=== PATIENT | male | born 1950 | race Caucasian/White ===

== ENCOUNTER 2018-09-28 20:47 | Emergency (ER) | payer OTHER, SELFPAY ==
[2018-09-28 20:48] VITALS: BP 165/89; PULSE 76; RESP 20; TEMP 36.2; O2SAT 96
--- NOTE | 2018-09-28 21:02 | PC.NURSE ---
left third finger dislocated. Pt denies pain if he doesn't move it or hit it on anything. Pt was holding a bottle tree that has knobs all over it. He tripped and fell forward and states his finger was caught up in the knobs and twisted when he fell on it. Denies LOC, thinners, lightheaded dizzyness. stated he hit his head on the bottle tree and scratched it. Medics on orcas put a bandaid on the scratch.
--- NOTE | 2018-09-28 21:07 | ED_ITS ---
HPI - Extremity Injury (Upper) General Chief Complaint: Extremity Injury, Upper Stated Complaint: dislocated finger Time Seen by Provider: 09/28/18 21:06 Source: patient Mode of arrival: ambulatory Limitations: no limitations History of Present Illness HPI narrative: Patient is here for a left middle finger dislocation. He states that he caught it on a object prior to arrival or was dislocated. Has not tried to reduce it prior to arrival. Related Data Home Medications Medication Instructions Recorded Confirmed ASPIRIN (Aspirin EC) 81 mg PO Q DAY #0 10/04/10 atorvastatin 80 mg PO HS #0 tab 02/11/16 multivitamin [Multiple Vitamins] 1 tab PO QDAY #0 tab 02/11/16 Previous Rx's Medication Instructions Recorded sildenafil [Viagra] 0 PO SEE INSTRUCTIONS #6 tab 03/03/16 lisinopril 10 mg PO QDAY #60 tab 01/20/17 Allergies Allergy/AdvReac Type Severity Reaction Status Date / Time No Known Drug Allergies Allergy Verified 09/28/18 20:52 Review of Systems Musculoskeletal Denies tingling Comments: Dislocation left middle finger Integumentary/Breasts Denies rash Neurologic Denies tingling Hematologic/Lymphatic Denies easy bleeding and Denies easy bruising [facility] Medical History Patient denies medical problems (Acute) Social History Smoking Status: Never smoker Social History Smoking Status: Never smoker Exam Initial Vital Signs Initial Vital Signs: Vital Signs Temperature 97.1 F L 09/28/18 20:48 Pulse Rate 76 09/28/18 20:48 Respiratory Rate 20 09/28/18 20:48 Blood Pressure 165/89 H 09/28/18 20:48 Pulse Oximetry 96 09/28/18 20:48 Cardio Pulses: radial pulses present on the left Skin Lesions: no lesions Rashes: no rashes Neuro Sensory Exam: no sensory deficits noted Extrem Other: Patient with a lateral angulation of the PIP joint of the left middle finger. Procedures Orthopedic Joint Reduction Joint #1: Time Out Performed: Yes Side: left Joint Reduction Location: other (Finger) Analgesia: other (Finger block) Local Anesthesia: lidocaine 1% Amount of anesthesic used (mL): 6 Technique used: direct manipulation Post-reduction neuro exam: intact and no change Post-reduction vascular: intact and no change Post Reduction X-Ray Obtained: Yes Post Reduction X-Ray Results: reduced Splint Applied: Yes Patient Tolerated Procedure: Well and No complications Orthopedic Splinting/Casting Injury #1: Side: left Upper Extremity Injury Location: finger Upper Extremity Immobilizer: aluminum form splint Post splinting neuro exam: no change Post splinting vascular exam: no change Placed by: Nursing Course Orders Ordered: ED Orders 09/28/18 21:06 XR hand LT min 3V Stat 09/28/18 21:22 XR hand LT min 3V Stat Vital Signs - 8 hr 09/28/18 20:48 09/28/18 22:05 Temperature 97.1 F L Pulse Rate 76 74 Respiratory Rate 20 16 Blood Pressure 165/89 H 152/88 H Pulse Oximetry 96 99 MDM - Extremity Injury (Upper) Imaging Data Hand x-ray: Radiologist's impression: [address] [address] XRay Report Signed Patient: Patrice Ríos [facility]#: [id number] : 9Acct:[id number] Age/Sex: 68 / MDate of Service: 09/28/18 Loc: ED Accession Number: [id number] Procedure: XR hand LT min 3V Ordering Provider: Baron Diallo D.O. PROCEDURE: XR HAND LT MIN 3V INDICATIONS: dislocated finger TECHNIQUE: 3 views of the hand(s) acquired. COMPARISON: None. FINDINGS: Bones: The third middle phalange is dislocated medially and dorsally.. No fracture identified. Carpal bones are normally aligned. No suspicious bony lesions. Soft tissues: No suspicious soft tissue calcifications. Surgical clips noted in the ventral wrist soft tissues. IMPRESSION: Medial-dorsal left third PIP joint dislocation. Dictated by: Codie Gardner MD, PhD on 09/28/2018 at 21:30 Approved by: Codie Gardner MD, PhD on 09/28/2018 at 21:32 Post reduction hand x-ray: Radiologist's impression: [address] [address] XRay Report Signed Patient: Patrice Ríos [facility]#: [id number] : 9Acct:[id number] Age/Sex: 68 / MDate of Service: 09/28/18 Loc: ED Accession Number: [id number] Procedure: XR hand LT min 3V Ordering Provider: Baron Diallo D.O. PROCEDURE: XR HAND LT MIN 3V INDICATIONS: post reduction TECHNIQUE: 3 views of the hand(s) acquired. COMPARISON: [facility], CR, XR HAND LT MIN 3V, 09/28/2018, 21:11. FINDINGS: Bones: No fractures or dislocations. The third PIP joint dislocation has been reduced. Carpal bones are normally aligned. No suspicious bony lesions. Soft tissues: No suspicious soft tissue calcifications. IMPRESSION: 1. Status post reduction of third PIP joint dislocation. 2. No fracture. Dictated by: Codie Gardner MD, PhD on 09/28/2018 at 22:10 Approved by: Codie Gardner MD, PhD on 09/28/2018 at 22:11 MDM Narrative Medical decision making narrative: Neurovascularly intact, finger reduced as described above. Finger splint placed. Patient was given return precautions and follow-up instructions. He expressed understanding and agreement with plan. Discharge Plan Departure Patient Disposition: Home Clinical Impression: Dislocation of finger, interphalangeal joint, left, closed Qualifiers: Encounter type: initial encounter Qualified Code(s): S63.279A - Dislocation of unspecified interphalangeal joint of unspecified finger, initial encounter Discharge Date/Time: 09/28/18 22:06 Interventions: ED Discharge Assessment Last Done: 09/28/18 22:05 Instructions: DI for Finger Dislocation Activity Restrictions/Additional Instructions: Keep the splint on for the next 2-3 days. Contact your primary care doctor for a follow-up. You can take Tylenol and/or ibuprofen for any discomfort. Return to the emergency department for any new or worsening symptoms Prescriptions: No Action ASPIRIN (Aspirin EC) 81 mg PO Q DAY Qty: 0 RF: 0 multivitamin [Multiple Vitamins] 1 EACH tablet 1 tab PO QDAY Qty: 0 RF: 0 atorvastatin 80 MG tablet 80 mg PO HS Qty: 0 RF: 0 sildenafil [Viagra] 100 MG tablet PO SEE INSTRUCTIONS Qty: 6 RF: 1 lisinopril 10 MG tablet 10 mg PO QDAY Qty: 60 RF: 0 Referrals: Marshall Melo MD [Primary Care Provider] -
--- NOTE | 2018-09-28 21:22 | DI.RAD.S_ITS ---
PROCEDURE: XR HAND LT MIN 3V INDICATIONS: post reduction TECHNIQUE: 3 views of the hand(s) acquired. COMPARISON: [facility], CR, XR HAND LT MIN 3V, 09/28/2018, 21:11. FINDINGS: Bones: No fractures or dislocations. The third PIP joint dislocation has been reduced. Carpal bones are normally aligned. No suspicious bony lesions. Soft tissues: No suspicious soft tissue calcifications. IMPRESSION: 1. Status post reduction of third PIP joint dislocation. 2. No fracture. Dictated by: Codie Gardner MD, PhD on 09/28/2018 at 22:10 Approved by: Codie Gardner MD, PhD on 09/28/2018 at 22:11
[2018-09-28 22:05] VITALS: BP 152/88; PULSE 74; RESP 16; O2SAT 99
== END 2018-09-28 22:06 | disposition home or self-care (01) ==
PROVIDERS: Emergency Provider Emergency Medicine; Family Provider Family Medicine; PCP Family Medicine
DX: S63.273A Dislocation of unspecified interphalangeal joint of left middle finger, initial encounter (principal); W19.XXXA Unspecified fall, initial encounter
CPT/HCPCS: 26770; 29130; 73130; 99282; 99283

== ENCOUNTER → 2021-02-08 09:09 | Outpatient (CLI) | payer MEDICARE, SELFPAY ==
--- NOTE | 2021-02-08 | DI.ECHO.S_ITS ---
[facility]---------+ [facility] +---------+ : : [address] : : : : [id number] : : : : Phone: [phone]+ Echocardiogram Report + + :Name: SILVIA ZELAYA Study Date: 02/08/2021 Height: 69 in : :[facility] ReadingLocation: Weight: 200 lb : : Gender: Male BSA: 2.1 m2 : :: 1950 Age: 70 yrs BP: 163/93 mmHg: :Reason For Study: ATHEROSCLEROSIS OF CORONARY ARTERY : :Ordering Physician: : :ANIKA HATCH Performed By: Teresa Catalan : :Referring: ANIKA LONDONO : + + Interpretation Summary Normal left ventricle size with ejection fraction 55-60%. Mild mitral regurgitation. The ascending aorta is mildly enlarged. Procedure: A two-dimensional transthoracic echocardiogram with color flow and Doppler was performed. The study quality was technically adequate. There is no prior echocardiogram noted for this patient. The patient was in sinus rhythm with heart rates between 60-70 bpm during the exam. Left Ventricle: The left ventricle is normal in size and wall thickness. The ejection fraction is estimated to be 55-60%. There are no focal wall motion abnormalities. Right Ventricle: The right ventricle is not well visualized. The right ventricle is normal size. Atria: The left atrial size is normal. Right atrial size is normal. There is no Doppler evidence for an interatrial shunt. Mitral Valve: The mitral valve leaflets appear mildly thickened, but open well. There is mild mitral regurgitation. Aortic Valve: The aortic valve is trileaflet. The aortic valve opens well. There is no aortic valve stenosis. No aortic regurgitation is present. Tricuspid Valve: The tricuspid valve is not well visualized, but is grossly normal. There is trace tricuspid regurgitation. Pulmonary artery pressures cannot be estimated because of the lack of a measurable TR jet velocity. Pulmonic Valve: The pulmonic valve leaflets are thin and pliable; valve motion is normal. There is mild pulmonic regurgitation. Great Vessels: The aortic root is normal size. The ascending aorta is mildly enlarged. The IVC is of normal diameter and collapses greater than 50% with a sniff. This suggests a low right atrial pressure of 3 mm Hg. Pericardium/ Pleura There is no pericardial effusion. There is no pleural effusion. MMode/2D Measurements & Calculations LVIDd: 5.1 cm LVOT diam: 2.1 cm LVIDs: 3.5 cm Ao root diam: 3.1 cm FS: 31.4 % asc Aorta Diam: 3.9 cm IVSd: 0.82 cm Ao Arch Diam (Prox Trans): 3.2 cm LVPWd: 0.84 cm LV soriano. diameter/BSA (cm/m^2): 2.5 LV sys. diameter/BSA (cm/m^2): 1.7 LA A2 area: 17.5 cm2 RA long axis: 5.2 cm LA A4 area: 16.0 cm2 RA area: 17.1 cm2 LA length (vol): 5.1 cm RA vol: 47.3 ml LA vol: 46.6 ml RA : 22.9 ml/m2 LA vol index: 22.6 ml/m2 IVC diam: 1.2 cm RVD1 (basal): 3.4 cm TAPSE: 1.3 cm Doppler Measurements & Calculations Ao V2 max: 117.5 cm/sec LVOT Max Jovan: 67.9 cm/sec Ao V2 mean: 84.5 cm/sec LV V1 max P.8 mmHg Ao max P.5 mmHg LV V1 VTI: 15.0 cm Ao mean P.2 mmHg JAMAAL(I,D): 2.0 cm2 Ao V2 VTI: 25.7 cm JAMAAL(V,D): 2.0 cm2 sev ratio: 0.58 JAMAAL indexed to BSA (cm^2/m^2): 0.99 MV E max jovan: 74.9 cm/sec PA V2 max: 102.5 cm/sec MV A max jovan: 71.2 cm/sec PA V2 mean: 70.1 cm/sec MV E/A: 1.1 PA mean P.2 mmHg Med Peak E' Jovan: 5.9 cm/sec E/E' med: 12.7 Lat Peak E' Jovan: 7.8 cm/sec E/E' lat: 9.6 E/e' average: 11.1 MV dec time: 0.24 sec SV(LVOT): 52.4 ml Electronically signed by: Anika Dahl on Reading Physician:02/08/2021 05:10 PM
--- NOTE | 2021-02-08 | DI.NM.S_ITS ---
PROCEDURE: NM ROSIE PERF SPECT REST & STR Rest and exercise myocardial perfusion SPECT with gated imaging and ejection fraction RADIOPHARMACEUTICAL: 12.5 mCi Tc-99m sestamibi IV at rest and 25 mCi Tc-99m sestamibi IV at peak exercise. A [id number] was performed. INDICATIONS: Atherosclerosis of coronary artery bypass graft(s) TECHNIQUE: Radiopharmaceutical was injected at peak stress test, and also at rest. SPECT images were obtained. SPECT myocardial perfusion images were displayed in short axis, horizontal long axis, and vertical long axis views. Gated images were reviewed using Betterment software. COMPARISON: None. CARDIAC STRESS: A standard Ki treadmill exercise tolerance test was performed by the patient under the supervision of an attending staff. The patient exercised for 4 minutes and 4 seconds; functional aerobic impairment (SUSANNE) is +32%; 7.0 METS. Hemodynamic data: There is normal blood pressure and heart rate response to exercise stress. Patient achieved 103% of maximum predicted heart rate at peak exercise. Symptoms: Patient denied chest pain during exercise. EKG: No diagnostic EKG changes of ischemia; no ectopy. FINDINGS: Raw data: There is good myocardial labeling by radiotracer. No significant motion artifacts. Exwq-[id number] ratio is 0.29 (normal is less than 0.38 for sestamibi tracer, and less than 0.50 for thallium tracer). Left ventricle function: Gated images demonstrate normal left ventricle wall thickening. No segmental wall motion abnormality. No transient ischemic dilation; TID is 0.96 (normal less than 1.3). The left ventricle resting end-diastolic volume is 91 mL. Left ventricle stress ejection fraction is 65%; normal values are above 45%. Myocardial perfusion: Small size, mild intensity fixed inferoapical defect that resolves with prone imaging. Normal wall motion. IMPRESSION: 1. No evidence of exercise-induced ischemia on ECG or perfusion imaging. 2. Limited exercise capacity. 3. Normal blood pressure response to exercise. Dictated by: Argelia Ortiz D.O. on 02/08/2021 at 16:55 Approved by: Argelia Ortiz M.D. on 02/08/2021 at 17:01
== END ==
PROVIDERS: Family Provider Family Medicine; PCP Family Medicine; Referring Provider Internal Medicine Interventional Cardiology; Visit Provider Internal Medicine Interventional Cardiology
DX: I34.0 Nonrheumatic mitral (valve) insufficiency (principal); I37.1 Nonrheumatic pulmonary valve insufficiency; I77.89 Other specified disorders of arteries and arterioles; I25.810 Atherosclerosis of coronary artery bypass graft(s) without angina pectoris; Z95.1 Presence of aortocoronary bypass graft
CPT/HCPCS: 78452; 93017; 93306; A9502

== ENCOUNTER → 2022-01-31 10:09 | Outpatient (CLI) | payer MEDICARE, SELFPAY ==
[2022-01-31 13:14] LABS: COVID19 -Nasal RAPID Negative (Negative)
== END ==
PROVIDERS: Family Provider Family Medicine; PCP Family Medicine; Visit Provider Surgery
DX: Z01.812 Encounter for preprocedural laboratory examination (principal); Z20.822 Contact with and (suspected) exposure to COVID-19
CPT/HCPCS: 87635; C9803

== ENCOUNTER 2022-02-01 09:06 | Day surgery (SDC) | payer MEDICARE, SELFPAY ==
[2022-02-01] VITALS (7 sets, daily range): BP systolic 110–127; BP diastolic 73–78; PULSE 57–65; RESP 8–16; TEMP 35.9–36.6; O2SAT 94–98; BMI 28.0
[2022-02-01] MEDS: LACTATED RINGERS 1,000 ML 200 ML IV (09:42)
--- NOTE | 2022-02-01 10:39 | PM.HP.1 ---
History of Present Illness History of Present Illness Date Patient Seen: 02/01/22 Time Patient Seen: 10:39 Chief complaint: SCREENING COLONOSCOPY Narrative: The patient presents for colorectal screening. He had previous colonoscopy 6 years ago demonstrated benign polyps. Family history significant for father who had colon cancer. On further history denies any recent gastrointestinal symptoms. No nausea, vomiting, abdominal pain, loss of appetite, unexplained weight loss, change in bowel habits, diarrhea, constipation, melena, hematochezia, or bright red blood per rectum. Patient History Medical History Patient denies medical problems Family & Social History Social History: household members family Tobacco & Substance use: Smoking Status Never smoker alcohol intake current alcohol intake frequency a few times a week Substance Use Type does not use Meds Home Medications and Allergies Home Medications Medication Instructions Recorded Confirmed Type ASPIRIN (Aspirin EC) 81 mg PO Q DAY ##0 10/04/10 02/01/22 History atorvastatin 80 mg tablet 80 mg PO DAILY #0 tabs 02/11/16 02/01/22 History multivitamin (Multiple Vitamins 1 tab PO QDAY #0 tabs 02/11/16 02/01/22 History tablet) lisinopril 10 mg tablet 10 mg PO QDAY #60 tabs 01/20/17 02/01/22 Rx sodium,potassium,mag sulfates 17.5 See Rx Instructions PO .COMPLEX 01/14/22 Rx gram-3.13 gram-1.6 gram oral soln #354 mL (Suprep Bowel Prep Kit) sildenafil 100 mg tablet (Viagra) See Rx Instructions .Route .COMPLEX 02/01/22 02/01/22 History Allergies Allergy/AdvReac Type Severity Reaction Status Date / Time No Known Drug Allergies Allergy Verified 02/01/22 09:30 Exam Vital Signs (past 8 hours): - 02/01/22 09:32 Temperature 96.6 F L Pulse Rate 65 Respiratory Rate 16 Blood Pressure 127/78 Pulse Oximetry 98 Oxygen Delivery Method Room Air Oxygen Flow Rate 0 Oxygen Delivery Method Room Air Oxygen Flow Rate 0 Narrative Exam Narrative: General adult male alert oriented no acute distress Chest nonlabored respiration Abdomen soft nontender nondistended Assessment & Plan Assessment & Plan narrative: The patient requires colorectal screening and colonoscopy is recommended. Technical details were discussed. Risks, benefits, alternatives explained. Risks including but not limited to myocardial infarction, aspiration, bleeding, pain, missed lesion, incomplete examination, need for further radiographic studies, colonic perforation, and need for major abdominal surgery were discussed. All questions were answered to their satisfaction, and they are in agreement with this plan. Time Spent With Patient Critical Care time: I spent a total of [] minutes of critical care time on this patient's care today; this time is exclusive of procedural time.
--- NOTE | 2022-02-01 10:40 | PM.OP.COLON ---
Operative Date/Time/Diagnoses Date of procedure: 02/01/22 Time of procedure: 10:40 Pre-op diagnosis: Personal history of colonic polyps. Family history of colon cancer. Post-op diagnosis: same Procedure & Clinicians Study performed: Colonoscopy Same procedure as scheduled: Yes Indications: Personal history colonic polyps. History of colon cancer in first-degree relative Surgeon: Jose F Richardson Procedure Notes Procedure in detail: Medications: Conscious sedation using 5mg IV midazolam and 100mcg IV of fentanyl The history and physical was performed/updated and the patient is ASA class is 2. The procedure was discussed in detail with the patient. Potential risks complications including infection, bleeding, missed diagnosis, perforation, need for surgery, and were explained. Their questions were answered and informed consent was obtained. Patient was brought to the procedure room and placed standard monitoring equipment. The patient's vital signs were monitored continuously throughout the entire procedure. Prior to starting time-out was performed. The patient was placed in the left lateral recumbent position. Procedural sedation was administered. Examination began with a thorough inspection of the perianal area there was no evidence of fissures, fistulae, external hemorrhoids or cutaneous malignancy. The colonoscopy scope was then placed into the anal canal and was advanced to the cecum, which was identified by the ileocecal valve, the appendiceal orifice and the confluence of the taenia. The scope was then slowly withdrawn examining colon thoroughly in all directions, irrigating it of any residual stool. FINDINGS 1. No masses or polyps 2. Internal hemorrhoids The patient tolerated the procedure well. They will be discharged once criteria are met. The prep was of fair quality. The withdrawl time was 9 minutes. The sedation time was 20 minutes. Specimen(s): none sent Impression: Normal colonoscopy Post-procedure Recommendations: Colonoscopy in 5 years Disposition: same day surgery
[2022-02-01] MEDS: fentaNYL 100 MCG/2 ML INJ IV (10:50)
[2022-02-01] MEDS: MIDAZOLAM 5 MG/5 ML VIAL IV (10:50)
--- NOTE | 2022-02-01 12:20 | SUR.PHASEII ---
left when ready left in stable condition.
== END 2022-02-01 12:15 | disposition home or self-care (01) ==
PROVIDERS: Family Provider Family Medicine; PCP Family Medicine; Referring Provider Surgery; Visit Provider Surgery
PROC: 0DJD8ZZ Inspection of Lower Intestinal Tract, Via Natural or Artificial Opening Endoscopic (ICD-10-PCS; CPT 45378; principal; 2022-02-01 10:45)
DX: Z12.11 Encounter for screening for malignant neoplasm of colon (principal); Z86.010 Personal history of colon polyps; Z80.0 Family history of malignant neoplasm of digestive organs; K64.8 Other hemorrhoids
CPT/HCPCS: G0105; 99152; J2250; J3010